=== PATIENT | male | born 1950 | race Caucasian/White ===

== ENCOUNTER 2022-02-24 09:02 | Day surgery (SDC) | payer MEDICARE ==
[2022-02-20 13:16] VITALS: BMI 21.0
[2022-02-24] MEDS ORDERED: Lidocaine 1% PF 5 ML VIAL ONE (09:12)
[2022-02-24] MEDS ORDERED: Sodium Bicarbonate 2.5 MEQ/5 ML VIAL ONE (09:12)
[2022-02-24 10:12] VITALS: BP 141/67; TEMP 98
== END 2022-02-24 10:36 | disposition home or self-care (01) ==
LOC: CSHRAD 09:02
PROVIDERS: ATTEND Nurse Practitioner Family
DX: M47.816 Spondylosis without myelopathy or radiculopathy, lumbar region (principal); M47.817 Spondylosis without myelopathy or radiculopathy, lumbosacral region; M47.812 Spondylosis without myelopathy or radiculopathy, cervical region; M47.814 Spondylosis without myelopathy or radiculopathy, thoracic region; M51.16 Intervertebral disc disorders with radiculopathy, lumbar region; M51.17 Intervertebral disc disorders with radiculopathy, lumbosacral region; M48.10 Ankylosing hyperostosis [Forestier], site unspecified; M53.3 Sacrococcygeal disorders, not elsewhere classified; M96.1 Postlaminectomy syndrome, not elsewhere classified; I10 Essential (primary) hypertension; E11.9 Type 2 diabetes mellitus without complications; G47.30 Sleep apnea, unspecified; Z90.49 Acquired absence of other specified parts of digestive tract; Z90.09 Acquired absence of other part of head and neck; Z98.890 Other specified postprocedural states; Z88.6 Allergy status to analgesic agent; Z88.0 Allergy status to penicillin; Z91.040 Latex allergy status; Z79.899 Other long term (current) drug therapy
CPT/HCPCS: 62304; 72132